=== PATIENT | female | born 1990 | race Caucasian/White ===

== ENCOUNTER 2019-02-14 17:21 | Emergency (ER) | payer OTHER, MEDICAID | END 2019-02-14 19:11 | disposition home or self-care (01) | LOC: E/R 17:21 | DX: L03.114 Cellulitis of left upper limb (principal); L03.113 Cellulitis of right upper limb | CPT/HCPCS: 99283; Z7502 ==

== ENCOUNTER 2019-03-03 20:30 | Emergency (ER) | payer OTHER | END 2019-03-03 22:12 | disposition home or self-care (01) | LOC: E/R 20:30 | DX: S90.562A Insect bite (nonvenomous), left ankle, initial encounter (principal); L29.9 Pruritus, unspecified; S90.561A Insect bite (nonvenomous), right ankle, initial encounter; W57.XXXA Bitten or stung by nonvenomous insect and other nonvenomous arthropods, initial encounter; Y92.9 Unspecified place or not applicable | CPT/HCPCS: 99282; Z7502 ==